=== PATIENT | female | born 1945 | race Caucasian/White ===

== ENCOUNTER 2017-05-29 07:51 | Observation (INO) | payer MEDICARE ==
[~2017-05-29] VITALS: Ht 170.2 cm; Wt 61.4 kg
[~2017-05-29 07:51] MED LIST: ALBUAER3 INH; ALEN1TAB48 PO; AMLO5TAB2; FLUT50SP; GABA100C4 PO; LIDOCAINE 0.5%/EPINEPHrine 1:200,000 SOLN 50 ML VIAL ONE; METR1TAB76 PO; OMEP20CA2; OXYMETAZOLINE HCL 0.05% 15 ML NASAL SPRAY ONE; PILO5TAB3 PO; VALS1TAB65 PO
[2017-05-29] MEDS ORDERED: AMPICILLIN/SULBAC 3 GM/NS 100 ML IV PRN ×2 (08:15)
[2017-05-29] MEDS ORDERED: CHLORHEXIDINE GLUCONATE 2 % 1 PACK (2 CLOTHS) TOPICAL PRN (09:15)
[2017-05-29] MEDS ORDERED: POVIDONE IODINE 5% (ANTISEPSIS KIT) 4 APPLICATIONS EACH NARE PRN (09:15)
[2017-05-29] MEDS ORDERED: METOPROLOL TARTRATE 25 MG TAB PO PRN (09:15)
[2017-05-29] MEDS ORDERED: SODIUM CHLORID 0.9% 500 ML IV PRN (09:15)
[2017-05-29] MEDS ORDERED: LACTATED RINGER'S 1000 ML IV PRN (09:15)
[2017-05-29] MEDS ORDERED: AMLO5TAB2 PO (09:32)
[2017-05-29] MEDS ORDERED: ASPI81TA23 PO (09:33)
[2017-05-29] MEDS ORDERED: ACETAMINOPHEN 1000 MG/100 ML 100 ML IV ONE (11:06)
[2017-05-29] MEDS ORDERED: MORPHINE SULFATE 4 MG/ML INJ ONE (12:55)
[2017-05-29] MEDS ORDERED: HYDROmorphone HCL PF 0.5 MG/0.5 ML SYRINGE ONE ×2 (13:00→14:26)
[2017-05-29] MEDS ORDERED: ONDANSETRON HCL 4 MG/2 ML VIAL IV PRN (15:00)
[2017-05-29 15:27] VITALS: O2SAT 96
[2017-05-29] MEDS: LACTATED RINGER'S 1000 ML INJ 1,000 ML IV SCH ×2 (15:30→23:05)
[2017-05-29 16:00] VITALS: BP 131/60; PULSE 61; RESP 14; O2SAT 96
[2017-05-29] MEDS ORDERED: VALSARTAN 80 MG TAB PO SCH (16:00)
[2017-05-29] MEDS ORDERED: amLODIPine BESYLATE 5 MG TAB PO SCH (16:00)
[2017-05-29] MEDS ORDERED: PANTOPRAZOLE SOD 20 MG DELAYED RELEASE TAB PO SCH (16:00)
[2017-05-29] MEDS: AMPICILLIN/SULBAC 3 GM/NS 100 ML IV SCH ×2 (17:20)
[2017-05-29] MEDS: ACETAMINOPHEN/HYDROcodone 325 MG/5 MG TAB PO PRN ×2 (18:38→23:02)
[2017-05-29 19:58] VITALS: O2SAT 98
[2017-05-29 20:00] VITALS: BP 180/76; PULSE 64; RESP 18; TEMP 97.8; O2SAT 100
[2017-05-29] MEDS ORDERED: GABAPENTIN 100 MG CAP PO SCH (21:00)
[2017-05-30] VITALS: BP 150/68; PULSE 56; RESP 18; TEMP 96.1; O2SAT 96
--- NOTE | 2017-05-30 00:18 | EKG ---
Date Performed: 05/29/2017 Time Performed: 09:24:02 PTAGE: 72 years EKG: SINUS BRADYCARDIA BORDERLINE ECG NO PREVIOUS TRACING DOCTOR: Anibal Agustin Interpretating Date/Time 05/30/2017 00:17:54
[2017-05-30] MEDS: AMPICILLIN/SULBAC 3 GM/NS 100 ML IV SCH ×2 (02:23)
[2017-05-30] MEDS: ACETAMINOPHEN/HYDROcodone 325 MG/5 MG TAB PO PRN (06:04)
[2017-05-30 07:20] VITALS: O2SAT 97
[2017-05-30] MEDS ORDERED: NEOSTIGMINE 5 MG/5 ML SYRINGE IV PUSH ONE (12:00)
[2017-05-30] MEDS ORDERED: SUCCINYLCHOLINE CHLORIDE 100 MG/5 ML SYRINGE IV PUSH ONE (12:00)
[2017-05-30] MEDS ORDERED: ROCURONIUM INJ 50 MG/5 ML SYRINGE IV PUSH ONE (12:00)
[2017-05-30] MEDS ORDERED: ONDANSETRON HCL 4 MG/2 ML VIAL IV PUSH ONE (12:00)
[2017-05-30] MEDS ORDERED: PHENYLEPH/NS 1000 MCG/10 ML SYR IV ONE (12:00)
[2017-05-30] MEDS ORDERED: LIDOCAINE HCL 1% PF 5 ML SYRINGE OTHER ONE (12:00)
[2017-05-30] MEDS ORDERED: DEXAMETHASONE SOD PHOS 4 MG/ML VIAL IV ONE (12:00)
[2017-05-30] MEDS ORDERED: ESMOLOL HCL 100 MG/10 ML VIAL IV ONE (12:00)
[2017-05-30] MEDS ORDERED: PROPOFOL 200 MG/20 ML AMP IV ONE (12:00)
[2017-05-30] MEDS ORDERED: GLYCOPYRROLATE 1 MG/5 ML SYRINGE IV PUSH ONE (12:00)
[2017-05-31] MEDS ORDERED: ASPIRIN EC 81 MG TABEC PO SCH (09:00)
--- NOTE | 2017-06-22 10:58 | MP ---
cc: BRIGID LANDRUM MD DATE OF SURGERY 05/29/[address] Brigid Landrum PREOPERATIVE DIAGNOSIS 1. Nasal airway obstruction. 2. Nasal septal deviation. 3. Hypertrophy of inferior turbinates. 4. Chronic sinus headache. POSTOPERATIVE DIAGNOSIS 1. Nasal airway obstruction. 2. Nasal septal deviation. 3. Hypertrophy of inferior turbinates. 4. Chronic sinus headache. OPERATION PERFORMED 1. Open repair nasal septal fracture. 2. Bilateral submucosal resection of inferior turbinates. 3. Bilateral endoscopic exploration of frontal sinus duct with balloon dilation technique. 4. Bilateral balloon dilation of the maxillary ostium with removal of maxillary sinus tissue. 5. Bilateral endoscopic sphenoidotomy with balloon dilation and removal of sphenoid sinus tissue. INDICATIONS The indications are documented in the history and physical. DESCRIPTION OF OPERATION The patient was taken to OR #2 and placed in the supine position. Following induction of general anesthesia and intubation the nose was packed bilaterally with cotton pledgets saturated in 0.05% oxymetazoline. The septal mucosa and inferior turbinates were injected with a total of 10 mL of 1% Xylocaine with epinephrine 1:100,000. She was then prepped and draped for surgery. The packing was removed and a hemitransfixion incision was opened in the left nasal vestibule. Through this incision the mucosa of septum was elevated bilaterally as far as the junction of the bony cartilaginous septum. This exposed the quadrangular cartilage which showed evidence of old fracture with comminuted fragments extending into the nasal airway bilaterally. A cumulative area of 2 x 2 cm was removed in a piecemeal fashion using a Erika elevator and Nagi-Diaz forceps. This was completed preserving 1.5 cm dorsal and caudal cartilaginous struts. The mucosa was then elevated from the bony septum and the maxillary crest. These were removed with Nagi-Diaz forceps on the bony septum and a 6 mm Remi chisel on the maxillary crest. The incision was closed with a running suture of 4-0 chromic and the mucosal layers of septum were approximated to each other with a quilting stitch of 4-0 plain gut. The inferior turbinates were then fractured out medially and stab incisions were opened along their inferior surfaces. Through these incisions the submucosal soft tissue was reduced using a curet and preserving the conchal bone. The incisions were then cauterized using the suction Bovie at 35 quintero and the remnants of the inferior turbinates were then re-lateralized to the lateral nasal wall. The remainder of the operation was done using endoscopic visualization and the Acclarent balloon sinus technique. Under endoscopic guidance additional injections of lidocaine and epinephrine were made into the attachments of the middle turbinates, the uncinate processes and the ethmoid cells. The left side was addressed first beginning with dilation of the frontal duct. The guidewire was advanced into the frontal sinus and verified to be in proper location. The balloon was then advanced over the wire and was inflated to a pressure of 12 atmospheres at the superior limit of the duct within the duct itself and also inferiorly at the junction with the ethmoid cells. The balloon was then removed and the duct was verified patent all the way into the frontal sinus. The right frontal duct was then operated in the same fashion and was verified patent. Next, the maxillary ostium was dilated on both sides using the balloon technique and on both sides using a 70-degree scope and upbiting Blakesley forceps the cavities were debrided of thick polypoid tissue and mucopurulent material. The sphenoid was addressed next and on both sides the ostium was enlarged using the balloon technique. Then using a 0-degree scope and Blakesley forceps the cavities were debrided of inflamed polypoid tissue and mucopurulent material. When this was completed all cavities were irrigated with saline. The superior half of the nasal vault was filled with Stammberger sinus foam. The nasal vault inferiorly was filled with 5.5 cm Rapid Rhino packs each inflated with 5 mL of air and the procedure was terminated. The patient was reversed from anesthesia and taken to Recovery in good condition. There were no complications. Blood loss was 200 mL. MD LUZIA Wall/KEITH /7:33 AM /10:33 AM
== END 2017-05-30 08:45 | disposition home or self-care (01) ==
LOC: PHSDC 07:51 → PH3B 15:02
PROVIDERS: ADMIT Otolaryngology; ATTEND Otolaryngology
DX: J34.2 Deviated nasal septum (principal); J34.3 Hypertrophy of nasal turbinates; J32.8 Other chronic sinusitis; I10 Essential (primary) hypertension; R94.31 Abnormal electrocardiogram [ECG] [EKG]
CPT/HCPCS: 00160; 21336; 30140; 31267; 31288; 31296; 93005; 94762; 96361; 96365; 96366; 96375; G0378; J0131; J0295; J0330; J1100; J1170; J2270; J2370; J2405; J2710; J3010; J7120